=== PATIENT | male | born 1965 | race African-American/Black ===

== ENCOUNTER 2017-06-07 19:07 | Emergency (ER) | payer OTHER ==
[~2017-06-07] VITALS: Ht 172.7 cm; Wt 74.8 kg
[2017-06-07 19:10] VITALS: BP 87/51
[2017-06-07] MEDS ORDERED: LORazepam Inj 2mg/ml 1ml IV ONE (19:30)
[2017-06-07] MEDS ORDERED: Morphine Sulfate 4mg/ml Inj IVP ONE ×2 (19:30→22:30)
[2017-06-07] MEDS ORDERED: Solu-MEDROL 125mg Inj IVP ONE (19:30)
[2017-06-07] MEDS ORDERED: DiphenhydrAMINE 50mg/ml Inj IVP ONE (19:30)
[2017-06-07 20:03] LABS: BASOPHILS % (AUTO) 0.6 % (0.0-2.0); HEMATOCRIT 46.1 % (42.0-52.0); HEMOGLOBIN 15.1 G/DL (14.2-18.0); LYMPHOCYTES % (AUTO) 25.8 % (20.0-45.0); MEAN CORPUSCULAR VOLUME 97 FL (80-99); MONOCYTES % (AUTO) 5.6 % (1.0-10.0); PLATELET COUNT 244 K/UL (150-450); RED BLOOD COUNT 4.78 M/UL (4.70-6.10); RED CELL DISTRIBUTION WIDTH 12.1 % (11.6-14.8); WHITE BLOOD COUNT 12.5 K/UL (4.8-10.8)
[2017-06-07 20:16] LABS: ANION GAP 16 mmol/L (5-15); BLOOD UREA NITROGEN 24 mg/dL (7-18); CALCIUM 8.5 MG/DL (8.5-10.1); CARBON DIOXIDE 20 MMOL/L (21-32); CHLORIDE 103 MMOL/L (98-107); CREATININE 1.3 MG/DL (0.55-1.30); POTASSIUM 3.2 MMOL/L (3.5-5.1); SODIUM 139 MMOL/L (136-145)
[2017-06-07 20:29] LABS: ALANINE AMINOTRANSFERASE 57 U/L (12-78); ALBUMIN 4.2 G/DL (3.4-5.0); ALBUMIN/GLOBULIN RATIO 1.2 (1.0-2.7); ALKALINE PHOSPHATASE 78 U/L (46-116); ASPARTATE AMINO TRANSFERASE 33 U/L (15-37); BILIRUBIN,TOTAL 0.2 MG/DL (0.2-1.0); CKMB 1.1 NG/ML (0.0-3.6); CREATINE KINASE 71 U/L (26-308); PHOSPHORUS 2.5 MG/DL (2.5-4.9)
[2017-06-07 21:00] VITALS: BP 134/69
--- NOTE | 2017-06-07 21:59 | Emergency Room Report ---
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 and reports the patient was recently diagnosed with a viral meningitis Patient was discharged from the hospital and they have noticed increased hives on the upper chest Patient had a tightness in the upper chest Radiation to the left shoulder Denies any vomiting or diarrhea pain is 5/10 sharp and heavy Allergies: Coded Allergies: PROMETHAZINE (Verified Allergy, Unknown, 06/08/17) Patient History Past Medical History: see triage record Pertinent Family History: none Reviewed Nursing Documentation: PMH: Agreed, PSxH: Agreed Nursing Documentation-PMH Past Medical History: No History, Except For Hx Cardiac Problems: Yes Hx Hypertension: Yes Hx Cerebrovascular Accident: No - HIV Review of Systems All Other Systems: negative except mentioned in HPI Physical Exam Vital Signs Date Time Temp Pulse Resp B/P (MAP) Pulse Ox O2 Delivery O2 Flow Rate FiO2 06/07/17 19:03 97.2 140 20 87/51 98 Room Air Sp02 EP Interpretation: reviewed, normal General Appearance: moderate distress Head: normocephalic, atraumatic Eyes: bilateral eye PERRL, bilateral eye EOMI ENT: hearing grossly normal, normal pharynx, TMs + canals normal, uvula midline Neck: full range of motion, supple, no meningismus, no bony tend Respiratory: lungs clear, normal breath sounds, no rhonchi, no respiratory distress, no retraction, no accessory muscle use Cardiovascular #1: normal peripheral pulses, no edema, no gallop, no JVD, no murmur, tachycardia Gastrointestinal: normal bowel sounds, non tender, soft, no mass, no organomegaly, non-distended, no guarding, no hernia, no pulsatile mass, no rebound Genitourinary: no CVA tenderness Musculoskeletal: normal inspection Neurologic: oriented x3, responsive, pattern stamper III-XII nml as tested, motor strength/ tone normal, sensory intact Psychiatric: mood/affect normal Skin: palpation normal, other - Patient has diffuse rash in the upper chest, erythematous blanching Lymphatic: normal inspection, no adenopathy Medical Decision Making Diagnostic Impression: Primary Impression: ACS (acute coronary syndrome) Additional Impression: Rash ER Course Patient is a fairly complex patient with multiple differential to consideration including but not limited to cardiac cardiopulmonary and vascular emergencies Patient has history of HIV however has not had any new medications Patient presents in acute distress however has done significantly better with acute intervention Initial lactic acid was mildly elevated patient was further hydrated Does not appear septic or toxic patient's presentation does not appear to be in line with meningitis at this time Patient is also on antibuse and the patient's power of therapy coordinator is concerned that the patient might be drinking alcohol Patient further stabilized is able to be transferred for continued care Labs Test 06/07/17 19:30 White Blood Count 12.5 K/UL (4.8-10.8) Red Blood Count 4.78 M/UL (4.70-6.10) Hemoglobin 15.1 G/DL (14.2-18.0) Hematocrit 46.1 % (42.0-52.0) Mean Corpuscular Volume 97 FL (80-99) Mean Corpuscular Hemoglobin 31.5 PG (27.0-31.0) Mean Corpuscular Hemoglobin Concent 32.7 G/DL (32.0-36.0) Red Cell Distribution Width 12.1 % (11.6-14.8) Platelet Count 244 K/UL (150-450) Mean Platelet Volume 7.9 FL (6.5-10.1) Neutrophils (%) (Auto) 67.0 % (45.0-75.0) Lymphocytes (%) (Auto) 25.8 % (20.0-45.0) Monocytes (%) (Auto) 5.6 % (1.0-10.0) Eosinophils (%) (Auto) 1.0 % (0.0-3.0) Basophils (%) (Auto) 0.6 % (0.0-2.0) Sodium Level 139 MMOL/L (136-145) Potassium Level 3.2 MMOL/L (3.5-5.1) Chloride Level 103 MMOL/L (98-107) Carbon Dioxide Level 20 MMOL/L (21-32) Anion Gap 16 mmol/L (5-15) Blood Urea Nitrogen 24 mg/dL (7-18) Creatinine 1.3 MG/DL (0.55-1.30) Estimat Glomerular Filtration Rate 58.0 mL/min (>60) Glucose Level 159 MG/DL (74-106) Lactic Acid Level 5.00 mmol/L (0.66-2.22) Calcium Level 8.5 MG/DL (8.5-10.1) Phosphorus Level 2.5 MG/DL (2.5-4.9) Magnesium Level 1.5 MG/DL (1.8-2.4) Total Bilirubin 0.2 MG/DL (0.2-1.0) Aspartate Amino Transf (AST/SGOT) 33 U/L (15-37) Alanine Aminotransferase (ALT/SGPT) 57 U/L (12-78) Alkaline Phosphatase 78 U/L (46-116) Total Creatine Kinase 71 U/L (26-308) Creatine Kinase MB 1.1 NG/ML (0.0-3.6) Creatine Kinase MB Relative Index 1.5 Troponin I 0.017 ng/mL (0.000-0.056) Pro-B-Type Natriuretic Peptide 163 pg/mL (0-125) Total Protein 7.7 G/DL (6.4-8.2) Albumin 4.2 G/DL (3.4-5.0) Globulin 3.5 g/dL Albumin/Globulin Ratio 1.2 (1.0-2.7) Lipase 279 U/L (73-393) EKG Diagnostic Results Rate: tachycardiac Rhythm: other ST Segments: other Rhythm Strip Diag. Results EP Interpretation: yes Rate: 105 Rhythm: NSR, no PVC's, no ectopy Chest X-Ray Diagnostic Results Chest X-Ray Diagnostic Results : Chest X-Ray Ordered: Yes # of Views/Limited/Complete: 1 View Indication: Chest Pain EP Interpretation: Yes Interpretation: no consolidation, no effusion, no pneumothorax Impression: No acute disease Last Vital Signs Date Time Temp Pulse Resp B/P (MAP) Pulse Ox O2 Delivery O2 Flow Rate FiO2 06/07/17 20:16 97.1 06/07/17 19:10 140 20 Room Air 06/07/17 19:10 87/51 98 Status: improved Disposition: XFER SHT-TRM HOSP Condition: Serious Referrals: [facility]ERR[facility] (PCP) MALCOLM WEAVER D.O. Jun 07, 2017 21:59
[2017-06-07 23:00] VITALS: BP 126/74
[2017-06-07 23:10] VITALS: BP 126/74
--- NOTE | 2017-06-08 11:04 | Diagnostic Imaging Report ---
Indication: Chest pain Technique: XRAY Chest 1v Comparison: None Findings: Low lung volumes artifactually exaggerate heart size and vascular markings. Heart likely within normal limits for size. Mediastinal contours appear sharp. There is question of mild pulmonary vascular congestion. No definite focal consolidation. No pleural effusion or pneumothorax. No acute osseous abnormality seen. Impression: Limited exam with low lung volumes. Question mild pulmonary vascular congestion. Repeat exam with improved inspiratory effort can be obtained for better evaluation as clinically indicated. No definite focal consolidation.
--- NOTE | 2017-06-12 19:33 | Cardiology Report ---
APPROVED REPORT EKG Measurement Heart [id number] OR 112P [id number] Sinus tachycardia Low voltage QRS Nonspecific ST abnormality Abnormal ECG
== END 2017-06-07 23:10 | disposition short-term general hospital (02) ==
LOC: EDBD 19:07 → EMR 20:01 → MERGE 20:01 → EMR 23:10
DX: I24.9 Acute ischemic heart disease, unspecified (principal); R21 Rash and other nonspecific skin eruption; R07.9 Chest pain, unspecified; Z88.8 Allergy status to other drugs, medicaments and biological substances; I10 Essential (primary) hypertension; Z86.79 Personal history of other diseases of the circulatory system
CPT/HCPCS: 36415; 71010; 80053; 82550; 82553; 83605; 83690; 83735; 83880; 84100; 84484; 85025; 87040; 93005; 96374; 96375; 99284; J1200; J2270; J2405; J2930

== ENCOUNTER 2017-07-10 19:55 | Emergency (ER) | payer OTHER ==
[~2017-07-10] VITALS: Ht 165.1 cm; Wt 59.0 kg
[2017-07-10 20:00] VITALS: BP 125/83
[2017-07-10 20:56] LABS: BASOPHILS % (AUTO) 1.2 % (0.0-2.0); EOSINOPHILS % (AUTO) 1.7 % (0.0-3.0); HEMATOCRIT 44.9 % (42.0-52.0); HEMOGLOBIN 15.4 G/DL (14.2-18.0); LYMPHOCYTES % (AUTO) 41.5 % (20.0-45.0); MEAN CORPUSCULAR VOLUME 97 FL (80-99); MONOCYTES % (AUTO) 12.7 % (1.0-10.0); PLATELET COUNT 250 K/UL (150-450); RED BLOOD COUNT 4.62 M/UL (4.70-6.10); RED CELL DISTRIBUTION WIDTH 12.3 % (11.6-14.8); WHITE BLOOD COUNT 5.3 K/UL (4.8-10.8)
[2017-07-10 21:07] LABS: ANION GAP 8 mmol/L (5-15); BLOOD UREA NITROGEN 15 mg/dL (7-18); CALCIUM 8.7 MG/DL (8.5-10.1); CARBON DIOXIDE 27 MMOL/L (21-32); CHLORIDE 108 MMOL/L (98-107); POTASSIUM 3.6 MMOL/L (3.5-5.1); SODIUM 143 MMOL/L (136-145)
[2017-07-10 21:15] LABS: ALANINE AMINOTRANSFERASE 124 U/L (12-78); ALBUMIN 3.7 G/DL (3.4-5.0); ALBUMIN/GLOBULIN RATIO 1.1 (1.0-2.7); ALKALINE PHOSPHATASE 123 U/L (46-116); ASPARTATE AMINO TRANSFERASE 140 U/L (15-37); BILIRUBIN,TOTAL 0.4 MG/DL (0.2-1.0)
[2017-07-10 22:00] VITALS: BP 131/78
[2017-07-10 22:07] LABS: APPEARANCE,URINE CLEAR; BILIRUBIN, URINE NEGATIVE (NEGATIVE); COLOR,URINE PALE YELLOW; GLUCOSE, URINE (UA) NEGATIVE (NEGATIVE); KETONES,URINE NEGATIVE (NEGATIVE); LEUKOCYTE ESTERASE ,URINE NEGATIVE (NEGATIVE); NITRITE,URINE NEGATIVE (NEGATIVE); PH,URINE 5 (4.5-8.0); PROTEIN,URINE NEGATIVE (NEGATIVE); UROBILINOGEN,URINE NORMAL MG/DL (0.0-1.0)
--- NOTE | 2017-07-10 22:54 | Emergency Room Report ---
History of Present Illness General Chief Complaint: Nausea Source: Patient, Friend (Edwardo Herrera M.D.) Present Illness HPI Patient presents via EMS for nausea and slurred speech. Called by friend. Suggestion of alcohol intake. Patient denies pain. No diarrhea, melena, abdominal pain, chest pain, cough, sore throat, head trauma , headache, dysuria, extremity pain, seizures. Has been detoxing at home. Apparently possibly taking Antabuse. Denies SI or HI. (Edwardo Herrera M.D.) Allergies: Coded Allergies: PROMETHAZINE (Verified Allergy, Unknown, 06/08/17) Patient History Past Medical History: see triage record Social History: Reports: alcohol use Social History Narrative from home Reviewed Nursing Documentation: PMH: Agreed, PSxH: Agreed (Edwardo Herrera M.D.) Review of Systems All Other Systems: negative except mentioned in HPI (Edwardo Herrera M.D.) Physical Exam Vital Signs Date Time Temp Pulse Resp B/P (MAP) Pulse Ox O2 Delivery O2 Flow Rate FiO2 07/10/17 19:57 98.2 80 16 125/83 99 Room Air Sp02 EP Interpretation: reviewed, normal General Appearance: well appearing, no apparent distress, GCS 15, other - slurred speech and alcohol on breath Head: normocephalic Eyes: bilateral eye PERRL, bilateral eye abnormal EOM - nystagmus, bilateral eye Scleral Injection ENT: moist mucus membranes Neck: supple Respiratory: lungs clear, normal breath sounds Cardiovascular #1: regular rate, rhythm Cardiovascular #2: 2+ radial (R) Gastrointestinal: normal inspection, non tender, no mass, non-distended, decreased bowel sounds Musculoskeletal: back normal, gait/station normal, normal range of motion Neurologic: oriented x3, motor strength/tone normal, DTRs symmetric, sensory intact, other - ataxia, nystagmus Psychiatric: no suicidal/homicidal ideation, other - poor insight Skin: normal inspection, warm/dry (Edwardo Herrera M.D.) Medical Decision Making Diagnostic Impression: Primary Impression: Alcohol intoxication Qualified Codes: F10.929 - Alcohol use, unspecified with intoxication, unspecified Additional Impression: Nausea ER Course Patient presents with nausea and alcohol on breath. DDx: gastritis, GItis, alcohol intoxication, electrolyte imbalance, occult infection. Patient needs evaluation with EKG and labs. Treatment with IV hydration, pepcid, zofran. CT of head not indicated. Labs with elevated LFTs and BA. EKG no injury. Friend states patient has allegedly been taking Antabuse but questions this as might have been switching medications. Patient more alert. Admits to alcohol. Denies SI. Still not sober enough for discharge. No vomiting. Nausea improved. Signed out to Dr. Sosa. Laboratory Tests Test 07/10/17 20:40 07/10/17 21:49 White Blood Count 5.3 K/UL (4.8-10.8) Red Blood Count 4.62 M/UL (4.70-6.10) L Hemoglobin 15.4 G/DL (14.2-18.0) Hematocrit 44.9 % (42.0-52.0) Mean Corpuscular Volume 97 FL (80-99) Mean Corpuscular Hemoglobin 33.4 PG (27.0-31.0) H Mean Corpuscular Hemoglobin Concent 34.3 G/DL (32.0-36.0) Red Cell Distribution Width 12.3 % (11.6-14.8) Platelet Count 250 K/UL (150-450) Mean Platelet Volume 8.8 FL (6.5-10.1) Neutrophils (%) (Auto) 43.0 % (45.0-75.0) L Lymphocytes (%) (Auto) 41.5 % (20.0-45.0) Monocytes (%) (Auto) 12.7 % (1.0-10.0) H Eosinophils (%) (Auto) 1.7 % (0.0-3.0) Basophils (%) (Auto) 1.2 % (0.0-2.0) Sodium Level 143 MMOL/L (136-145) Potassium Level 3.6 MMOL/L (3.5-5.1) Chloride Level 108 MMOL/L (98-107) H Carbon Dioxide Level 27 MMOL/L (21-32) Anion Gap 8 mmol/L (5-15) Blood Urea Nitrogen 15 mg/dL (7-18) Creatinine 1.0 MG/DL (0.55-1.30) Estimate Glomerular Filtration Rate > 60 mL/min (>60) Glucose Level 106 MG/DL (74-106) Calcium Level 8.7 MG/DL (8.5-10.1) Total Bilirubin 0.4 MG/DL (0.2-1.0) Aspartate Amino Transferase (AST) 140 U/L (15-37) H Alanine Aminotransferase (ALT) 124 U/L (12-78) H Alkaline Phosphatase 123 U/L (46-116) H Total Protein 7.1 G/DL (6.4-8.2) Albumin 3.7 G/DL (3.4-5.0) Globulin 3.4 g/dL Albumin/Globulin Ratio 1.1 (1.0-2.7) Salicylates Level 1.0 ug/mL (2.8-20) L Acetaminophen Level < 2 MCG/ML (10-30) L Serum Alcohol 390 mg/dL Urine Color Pale yellow Urine Appearance Clear Urine pH 5 (4.5-8.0) Urine Specific [place] 1.010 (1.005-1.035) Urine Protein Negative (NEGATIVE) Urine Glucose (UA) Negative (NEGATIVE) Urine Ketones Negative (NEGATIVE) Urine Occult Blood Negative (NEGATIVE) Urine Nitrite Negative (NEGATIVE) Urine Bilirubin Negative (NEGATIVE) Urine Urobilinogen Normal MG/DL (0.0-1.0) Urine Leukocyte Esterase Negative (NEGATIVE) Urine Opiates Screen Positive (NEGATIVE) H Urine Barbiturates Screen Negative (NEGATIVE) Phencyclidine (PCP) Screen Negative (NEGATIVE) Urine Amphetamines Screen Negative (NEGATIVE) Urine Benzodiazepines Screen Negative (NEGATIVE) Urine Cocaine Screen Negative (NEGATIVE) Urine Marijuana (THC) Screen Negative (NEGATIVE) (Edwardo Herrera M.D.) ER Course patient now awake and alert, sober, ambualtory, giong home with partner (Patrice Sosa M.D.) EKG Diagnostic Results Rate: bradycardiac ST Segments: no acute changes (Edwardo Herrera M.D.) Rhythm Strip Diag. Results EP Interpretation: yes Rhythm: no PVC's, no ectopy, other - Bradycardia (Edwardo Herrera M.D.) Last Vital Signs Date Time Temp Pulse Resp B/P (MAP) Pulse Ox O2 Delivery O2 Flow Rate FiO2 07/11/17 02:00 97.9 84 15 129/78 99 Room Air Status: improved (Edwardo Herrera M.D.) Disposition: HOME, SELF-CARE Condition: Improved Referrals: [facility]ERR[facility] (PCP) Edwardo Herrera M.D. Jul 10, 2017 22:54 Patrice Sosa M.D. Jul 11, 2017 05:21
[2017-07-11] VITALS: BP 121/81
[2017-07-11 02:00] VITALS: BP 129/78
[2017-07-11 04:00] VITALS: BP 121/74
[2017-07-11 05:40] VITALS: BP 129/66
--- NOTE | 2017-07-14 17:04 | Cardiology Report ---
APPROVED REPORT EKG Measurement Heart [id number] ID [id number] Sinus tachycardia Minimal voltage criteria for LVH, may be normal variant Possible Lateral infarct, age undetermined Abnormal ECG
== END 2017-07-11 05:40 | disposition home or self-care (01) ==
LOC: EDBD 19:55 → EMR 20:54
DX: F10.129 Alcohol abuse with intoxication, unspecified (principal); R11.0 Nausea; Z88.8 Allergy status to other drugs, medicaments and biological substances
CPT/HCPCS: 36415; 80053; 80307; 80329; 81003; 85025; 93005; 96361; 96374; 96375; 96376; 99284; J2405; S0028